=== PATIENT | male | born 1980 | race Caucasian/White ===

== ENCOUNTER → 2018-05-25 | Outpatient (CLI) | payer BC | LOC: OD 11:53 | PROVIDERS: ATTEND Otolaryngology | DX: J32.9 Chronic sinusitis, unspecified (principal) ==

== ENCOUNTER → 2018-06-21 | Outpatient (CLI) | payer BC | LOC: OD 13:14 | PROVIDERS: ATTEND Otolaryngology | DX: J32.9 Chronic sinusitis, unspecified (principal) | CPT/HCPCS: 36415; 82785; 86003 ==

== ENCOUNTER 2018-10-07 19:50 | Emergency (ER) | payer OTHER, BC ==
--- NOTE | 2018-10-07 23:37 | ER Document Report ---
HPI - HPI Time Seen by Provider: 10/07/18 22:56 Pain Level: 0 Context: Patient is a 38-year-old male that comes to the emergency department for chief complaint of possible medication side effects. He states that over the past few weeks ever since he was started on lisinopril he gets frequent flushing, tingling sensation over his face and shoulders, and occasionally feels mildly lightheaded. He denies pain in the chest, difficulty breathing, difficulty swallowing, swelling of the face, tongue, or throat. He denies any current symptoms. [facility] to adjust [facility]. He states that he does take a blood pressure journal and his blood pressure averages in the 140s to 150s when he does not take his medication. He does not take any other medications. He denies any other medical history. Past Medical History - General Information source: Patient - Social History Smoking Status: Never Smoker Frequency of alcohol use: None Drug Abuse: None Lives with: Alone Family History: Reviewed & Not Pertinent - Past Medical History Cardiac Medical History: Reports: Hx Hypertension - Immunizations Immunizations up to date: Yes Hx Diphtheria, Pertussis, Tetanus Vaccination: Yes Vertical Provider Document - CONSTITUTIONAL General Appearance: WD/WN, No Apparent Distress, Obese - INFECTION CONTROL TRAVEL OUTSIDE OF THE [place] IN LAST 30 DAYS: No - HEENT HEENT: Atraumatic, Normal ENT Exam, Normocephalic - NECK Neck: Normal Inspection - RESPIRATORY Respiratory: Breath Sounds Normal, No Respiratory Distress - CARDIOVASCULAR Cardiovascular: Regular Rate, Regular Rhythm - GI/ABDOMEN Gastrointestinal: Abdomen Soft, Abdomen Non-Tender - BACK Back: Normal Inspection - MUSCULOSKELETAL/EXTREMETIES Musculoskeletal/Extremeties: MAEW, FROM, Non-Tender - NEURO Level of Consciousness: Awake, Alert, Appropriate - DERM Integumentary: Warm, Dry, No Rash - There is some flushing of the skin around the face, shoulders, however there are no urticaria, no rash, unremarkable skin exam otherwise. Course - Re-evaluation Re-evalutation: Patient slightly anxious but otherwise well-appearing. He does have a slight flushing sensation on the head and shoulders but there is no hives, oral ph aryngeal exam is unremarkable, physical exam is unremarkable otherwise. Patient states he will not be taking his blood pressure medication any longer and he is requesting a new one. Because he has lready completed the blood pressure journal, he will be started on hydrochlorothiazide. I did provide him with Zyrtec as well because of his slightly odd symptoms. There is no evidence of anaphylaxis. I discussed expectations, close follow-up, and return precautions. Patient states understanding and agreement. - Vital Signs Vital signs: Temp Pulse Resp BP Pulse Ox 98.5 F 72 18 137/84 H 94 10/07/18 19:58 10/07/18 19:58 10/07/18 19:58 10/07/18 19:58 10/07/18 19:58 Discharge - Discharge Clinical Impression: Medication side effects, Essential hypertension Condition: Stable Disposition: HOME, SELF-CARE Additional Instructions: Because of the side effects you are having could be from the medication we are stopping the lisinopril and placing you on hydrochlorothiazide. Take as pres cribed. There is also possibility of allergy/allergic component to your symptoms, take the cetirizine as prescribed. Follow-up with your primary care for additional evaluation and management. Return to the emergency department for any concerning or worsening symptoms. Prescriptions: Cetirizine HCl [Zyrtec 10 mg Tablet] 1 tab PO DAILY #30 tablet Hydrochlorothiazide [Hydrodiuril 25 mg Tablet] 25 mg PO QAM #30 tablet Referrals: JACQUES GONZALEZ MD [ACTIVE STAFF] - Follow up as needed
[2018-10-08 00:13] VITALS: BP 181/87
== END 2018-10-07 23:48 | disposition home or self-care (01) ==
LOC: ER 19:50
DX: I10 Essential (primary) hypertension (principal); T46.4X5A Adverse effect of angiotensin-converting-enzyme inhibitors, initial encounter; R23.2 Flushing; R20.2 Paresthesia of skin; R42 Dizziness and giddiness; X58.XXXA Exposure to other specified factors, initial encounter
CPT/HCPCS: 99283

== ENCOUNTER 2019-04-21 18:15 | Emergency (ER) | payer BC ==
[2019-04-21 18:55] VITALS: BP 172/109
--- NOTE | 2019-04-21 19:03 | ER Document Report ---
ED Medical Screen (RME) - General TRAVEL OUTSIDE OF THE [place] IN LAST 30 DAYS: No <AL BONILLA - Last Filed: 04/21/19 19:02> <DAMIENFREDA GERALD - Last Filed: 04/21/19 22:34> - General Chief Complaint: Facial Swelling Stated Complaint: FACIAL PAIN, FEELS SWOLLEN Time Seen by Provider: 04/21/19 18:58 Primary Care Provider: RENETTA VARELA MD [Primary Care Provider] - Follow up as needed - HPI Notes: 04/21/19 19:02 Patient is a 39-year-old male who presents complaining of having intermittent flushing and redness to his face that feels like it is "burning" almost daily since February. He is not sure if this is drug allergy or something else going on. He is requesting some labs to be performed. Patient is aware that we may not find the exact answer and he might need to see a specialist for this issue. Denies fever, chest pain, shortness breath, abdominal pain. He does have a history of fatty liver and H. pylori otherwise. I have treated and performed a rapid initial assessment of this patient. A comprehensive ED assessment and evaluation of the patient, analysis of test results and completion of medical decision making process will be conducted by additional ED providers. PHYSICAL EXAMINATION: GENERAL: Well-appearing, well-nourished and in no acute distress. A&Ox4. Answers questions appropriately. No evidence of angioedema. No airway compromise. (AL BONILLA) - Related Data Allergies/Adverse Reactions: oxycodone [Oxycodone] Allergy (Verified 02/08/15 22:03) Penicillins Allergy (Verified 02/08/15 22:03) Past Medical History - Social History Frequency of alcohol use: None Drug Abuse: None - Past Medical History Cardiac Medical History: Reports: Hx Hypertension - Immunizations Immunizations up to date: Yes Hx Diphtheria, Pertussis, Tetanus Vaccination: Yes <AL BONILLA - Last Filed: 04/21/19 19:02> Physical Exam - Vital signs Vitals: Temp Pulse Resp BP Pulse Ox 97.9 F 87 18 172/109 H 98 04/21/19 18:53 04/21/19 18:53 04/21/19 18:53 04/21/19 18:53 04/21/19 18:53 Course - Laboratory Result Diagrams: 04/21/19 19:21 04/21/19 19:21 <FREDA QUEZADA IV - Last Filed: 04/21/19 22:34> - Vital Signs Vital signs: Temp Pulse Resp BP Pulse Ox 97.9 F 87 18 172/109 H 98 04/21/19 18:53 04/21/19 18:53 04/21/19 18:53 04/21/19 18:53 04/21/19 18:53 - Laboratory Laboratory results interpreted by me: 04/21/19 04/21/19 04/21/19 19:21 19:21 19:21 WBC 10.9 H Glucose 126 H Calcium 10.3 H AST 122 H Urine Urobilinogen 2.0 H Urine Ascorbic Acid 40 H Doctor's Discharge <AL BONILLA - Last Filed: 04/21/19 19:02> <FREDA QUEZADA IV - Last Filed: 04/21/19 22:34> - Discharge Clinical Impression: Facial paresthesia Condition: Good Disposition: HOME, SELF-CARE Additional Instructions: Return to the Emergency Department without delay if any worse. HOME CARE INSTRUCTIONS & INFORMATION: Thank you for choosing us for your medic al needs. We hope you're satisfied with the care you received. After you leave, you must properly care for your problem and, at the same time, observe its progress. Any condition can change. Some illnesses can change rapidly over hours or days. If your condition worsens, return to the Emergency Department or see your physician promptly. ABOUT YOUR X-RAYS AND EKG'S: If you had an EKG or X-rays taken, they have been read by the Emergency Physician. The X-rays and EKG's will also be read by a Radiologist or Manpower Development Specialist Manager within 24 hours. If discrepancies are noted, you will be notified by telephone. Please be certain the ED has a correct telephone number & address where you can be reached. Also, realize that some fractures or abnormalities do not show up on initial X-rays. If your symptoms continue, see your physician. ABOUT YOUR LABORATORY TEST: If you had laboratory tests, the results have been reviewed by the Emergency Physician. Some test results (for example cultures) may not be available for several days. You will be contacted if any test result shows you need additional treatment. Please be certain the ED has a correct telephone number and address where you can be reached. ABOUT YOUR MEDICATIONS: You will receive instructions on how to take your medicine on the prescription label you receive. Additional information may be provided by the Pharmacy. If you have questions afterwards, call the ED for clarification or further instructions. Some prescribed medications may cause drowsiness. Do not perform tasks such as driving a car or operating machinery without consulting your Pharmacist. If you feel you need a refill of pain medication, your condition will need re-evaluation. Please do not call for a refill of any medication. ABOUT YOUR SIGNATURE: Signature of this document acknowledges to followin. Understanding that you received emergency treatment and that you may be released before al medical problems are known or treated. Please be certain the ED has a correct phone number & address where you can be reached. 2. Acknowledgement that you will arrange for follow-up care as recommended. 3. Authorization for the Emergency Physician to provide information to your follow-up Physician in order to maximize your care. AT ANY TIME, IF YOUR SYMPTOMS CHANGE SIGNIFICANTLY OR WORSEN OR YOU DEVELOP NEW SYMPTOMS, RETURN TO THE EMERGENCY DEPARTMENT IMMEDIATELY FOR RE-EVALUATION. OUR GOAL IS TO PROVIDE EXCELLENT MEDICAL CARE! WE HOPE THAT WE HAVE MET YOUR EXPECTATIONS DURING YOUR EMERGENCY DEPARTMENT VISIT AND THAT YOU FEEL YOU HAVE RECEIVED EXCELLENT CARE! Referrals: RENETTA VARELA MD [Primary Care Provider] - Follow up as needed
[2019-04-21 19:43] LABS: ABSOLUTE BASOPHILS # (AUTO) 0.1 10^3/uL (0.0-0.2); ABSOLUTE EOSINOPHILS # (AUTO) 0.1 10^3/uL (0.0-0.6); ABSOLUTE MONOCYTES (AUTO) 0.8 10^3/uL (0.1-1.4); ABSOLUTE NEUT (AUTO) 6.9 10^3/uL (1.7-8.2); BASOPHILS % (AUTO) 0.5 % (0-2); EOSINOPHILS % (AUTO) 1.3 % (0-6); HEMATOCRIT 42.8 % (37.9-51.0); HEMOGLOBIN 15.2 g/dL (13.5-17.0); LYMPHOCYTES % (AUTO) 27.2 % (13-45); MEAN CORPUSCULAR HEMOGLOBIN 30.3 pg (27.0-33.4); MEAN CORPUSCULAR HGB CONC 35.6 g/dL (32.0-36.0); MEAN CORPUSCULAR VOLUME 85 fl (80-97); MONOCYTES % (AUTO) 7.5 % (3-13); PLATELET COUNT 424 10^3/uL (150-450); RED BLOOD COUNT 5.03 10^6/uL (4.35-5.55); RED CELL DISTRIBUTION WIDTH 12.5 % (11.5-14.0); SEGMENTED NEUTROPHILS % (AUTO) 63.5 % (42-78); TOTAL CELLS COUNTED % (AUTO) 100 %; WHITE BLOOD COUNT 10.9 10^3/uL (4.0-10.5)
[2019-04-21 19:52] LABS: APPEARANCE,URINE CLEAR; BILIRUBIN,URINE NEGATIVE (NEGATIVE); COLOR,URINE YELLOW; GLUCOSE, URINE NEGATIVE (NEGATIVE); KETONES,URINE NEGATIVE (NEGATIVE); PROTEIN,URINE NEGATIVE (NEGATIVE); URINE SPECIFIC GRAVITY 1.024
[2019-04-21 20:00] LABS: ALBUMIN 4.8 g/dL (3.5-5.0); ALKALINE PHOSPHATASE 78 U/L (38-126); ANION GAP 11 (5-19); ASPARTATE AMINO TRANSFERASE 122 U/L (17-59); BILIRUBIN,DIRECT 0.2 mg/dL (0.0-0.4); BILIRUBIN,TOTAL 0.7 mg/dL (0.2-1.3); BLOOD UREA NITROGEN 15 mg/dL (7-20); CALCIUM 10.3 mg/dL (8.4-10.2); CARBON DIOXIDE 30 mmol/L (22-30); CHLORIDE 100 mmol/L (98-107); GLUCOSE 126 mg/dL (75-110); POTASSIUM 4.5 mmol/L (3.6-5.0); TOTAL PROTEIN 7.9 g/dL (6.3-8.2)
--- NOTE | 2019-04-22 01:40 | ER Document Report ---
Entered by SHIRA SOTO SCRIBE 04/21/19 2233 Acting as scribe for:FREDA QUEZADA IV, MD ED General - General Chief Complaint: Facial Swelling Stated Complaint: FACIAL PAIN, FEELS SWOLLEN Time Seen by Provider: 04/21/19 18:58 Primary Care Provider: RENETTA VARELA MD [ACTIVE STAFF] - Follow up as needed Mode of Arrival: Ambulatory Information source: Patient Notes: This 39 year old male patient presents to the emergency department today with complaints of multiple vague complaints including face redness, feeling like his face was on fire, lip swelling, right sided facial swelling, chest pain, and spitting up blood. All of these symptoms are intermittent and have been going on for months. Patient adds that it "might just be that he is overstressed and overworked". TRAVEL OUTSIDE OF THE [place] IN LAST 30 DAYS: No - Related Data Allergies/Adverse Reactions: oxycodone [Oxycodone] Allergy (Verified 02/08/15 22:03) Penicillins Allergy (Verified 02/08/15 22:03) Past Medical History - General Information source: Patient - Social History Smoking Status: Former Smoker Cigarette use (# per day): No Frequency of alcohol use: None Drug Abuse: None Family History: Reviewed & Not Pertinent Patient has suicidal ideation: No Patient has homicidal ideation: No - Past Medical History Cardiac Medical History: Reports: Hx Hypertension - Immunizations Immunizations up to date: Yes Hx Diphtheria, Pertussis, Tetanus Vaccination: Yes Review of Systems - Review of Systems Constitutional: No symptoms reported EENT: See HPI Cardiovascular: See HPI Respiratory: No symptoms reported Gastrointestinal: No symptoms reported Genitourinary: No symptoms reported Male Genitourinary: No symptoms reported Musculoskeletal: No symptoms reported Skin: See HPI Hematologic/Lymphatic: No symptoms reported Neurological/Psychological: No symptoms reported -: Yes All other systems reviewed and negative Physical Exam - Vital signs Vitals: Temp Pulse Resp BP Pulse Ox 97.9 F 87 18 172/109 H 98 04/21/19 18:53 04/21/19 18:53 04/21/19 18:53 04/21/19 18:53 04/21/19 18:53 Interpretation: Normal - General General appearance: Appears well, Alert - HEENT Head: Normocephalic, Atraumatic Eyes: Normal Pupils: PERRL - Respiratory Respiratory status: No respiratory distress Chest status: Nontender Breath sounds: Normal Chest palpation: Normal - Cardiovascular Rhythm: Regular Heart sounds: Normal auscultation Murmur: No - Abdominal Inspection: Normal Distension: No distension Bowel sounds: Normal Tenderness: Nontender Organomegaly: No organomegaly - Back Back: Normal, Nontender - Extremities General upper extremity: Normal inspection, Nontender, Normal color, Normal ROM, Normal temperature General lower extremity: Normal inspection, Nontender, Normal color, Normal ROM, Normal temperature, Normal weight bearing. No: Kathryn's sign - Neurological Neuro grossly intact: Yes Cognition: Normal Orientation: AAOx4 Mary Coma Scale Eye Opening: Spontaneous Mary Coma Scale Verbal: Oriented [place] Coma Scale Motor: Obeys Commands [place] Coma Scale Total: 15 Speech: Normal Motor strength normal: LUE, RUE, LLE, RLE Sensory: Normal - Psychological Associated symptoms: Normal affect, Normal mood - Skin Skin Temperature: Warm Skin Moisture: Dry Skin Color: Normal Course - Vital Signs Vital signs: Temp Pulse Resp BP Pulse Ox 97.9 F 87 18 172/109 H 98 04/21/19 18:53 04/21/19 18:53 04/21/19 18:53 04/21/19 18:53 04/21/19 18:53 - Laboratory Result Diagrams: 04/21/19 19:21 04/21/19 19:21 Laboratory results interpreted by me: 04/21/19 04/21/19 04/21/19 19:21 19:21 19:21 WBC 10.9 H Glucose 126 H Calcium 10.3 H AST 122 H Urine Urobilinogen 2.0 H Urine Ascorbic Acid 40 H Discharge - Discharge Clinical Impression: Facial paresthesia Condition: Good Disposition: HOME, SELF-CARE Additional Instructions: Return to the Emergency Department without delay if any worse. HOME CARE INSTRUCTIONS & INFORMATION: Thank you for choosing us for your medical needs. We hope you're satisfied with the care you received. After you leave, you must properly care for your problem and, at the same time, observe its progress. Any condition can change. Some illnesses can change rapidly over hours or days. If your condition worsens, return to the Emergency Department or see your physician promptly. ABOUT YOUR X-RAYS AND EKG'S: If you had an EKG or X-rays taken, they have been read by the Emergency Physician. The X-rays and EKG's will also be read by a Ra diologist or Tax Assessor within 24 hours. If discrepancies are noted, you will be notified by telephone. Please be certain the ED has a correct telephone number & address where you can be reached. Also, realize that some fractures or abnormalities do not show up on initial X-rays. If your symptoms continue, see your physician. ABOUT YOUR LABORATORY TEST: If you had laboratory tests, the results have been reviewed by the Emergency Physician. Some test results (for example cultures) may not be available for several days. You will be contacted if any test result shows you need additional treatment. Please be certain the ED has a correct telephone number and address where you can be reached. ABOUT YOUR MEDICATIONS: You will receive instructions on how to take your medicine on the prescription label you receive. Additional information may be provided by the Pharmacy. If you have questions afterwards, call the ED for clarification or further instructions. Some prescribed medications may cause drowsiness. Do not perform tasks such as driving a car or operating machinery without consulting your Pharmacist. If you feel you need a refill of pain medication, your condition will need re-evaluation. Please do not call for a refill of any medication. ABOUT YOUR SIGNATURE: Signature of this document acknowledges to followin. Understanding that you received emergency treatment and that you may be released before al medical problems are known or treated. Please be certain the ED has a correct phone number & address where you can be reached. 2. Acknowledgement that you will arrange for follow-up care as recommended. 3. Authorization for the Emergency Physician to provide information to your follow-up Physician in order to maximize your care. AT ANY TIME, IF YOUR SYMPTOMS CHANGE SIGNIFICANTLY OR WORSEN OR YOU DEVELOP NEW SYMPTOMS, RETURN TO THE EMERGENCY DEPARTMENT IMMEDIATELY FOR RE-EVALUATION. OUR GOAL IS TO PROVIDE EXCELLENT MEDICAL CARE! WE HOPE THAT WE HAVE MET YOUR EXPECTATIONS DURING YOUR EMERGENCY DEPARTMENT VISIT AND THAT YOU FEEL YOU HAVE RECEIVED EXCELLENT CARE! Referrals: RENETTA VARELA MD [ACTIVE STAFF] - Follow up as needed I personally performed the services described in the documentation, reviewed and edited the documentation which was dictated to the scribe in my presence, and it accurately records my words and actions.
== END 2019-04-21 23:00 | disposition home or self-care (01) ==
LOC: ER 18:15
DX: R20.2 Paresthesia of skin (principal); R07.9 Chest pain, unspecified; R04.2 Hemoptysis; R22.0 Localized swelling, mass and lump, head; I10 Essential (primary) hypertension; Z88.6 Allergy status to analgesic agent; Z88.5 Allergy status to narcotic agent; Z88.0 Allergy status to penicillin; Z87.891 Personal history of nicotine dependence
CPT/HCPCS: 36415; 80053; 81001; 85025; 99283

== ENCOUNTER 2019-09-06 16:56 | Emergency (ER) | payer BC ==
[2019-09-06] MEDS ORDERED: LIDOCAINE 1% INJ (10 MG/ML) 10 ML MDV INJ ONE (17:30)
--- NOTE | 2019-09-06 18:27 | ER Document Report ---
ED Extremity Problem, Lower - General Chief Complaint: Toe Injury Stated Complaint: TOE PAIN Time Seen by Provider: 09/06/19 17:21 Primary Care Provider: NADIRA FRANCIS PA-C [Primary Care Provider] - Follow up as needed Mode of Arrival: Ambulatory Information source: Patient Notes: Patient is a 39-year-old male comes emergency room complaining of right great toe pain. Patient states that back before he had a problem with his great toe with an ingrown toenail so he went to the walk-in clinic and they did a block and removed portion of the nail. He states that it got better and then last night he was wrestling with his little toddler and somehow got part of the nail caught in something and pulled a little of the nail out. Patient states has had severe pain and discomfort ever since then with moderate amount of increasing redness. Also noted on patient's renal triage notes he had hypertension with a diastolic of 109 and a systolic of 199. Patient admits that he sees his primary care doctor and they have been having a difficult time managing his blood pressure and he was just changed over to hydralazine 10 mg twice a day and it seems like his pressure is getting worse. He has an appointment to follow-up with the primary care provider on Wednesday for reevaluation. Patient does not want us to follow blood pressure at this point secondary to his pain and discomfort. TRAVEL OUTSIDE OF THE [place] IN LAST 30 DAYS: No - HPI Patient complains to provider of: Pain, Swelling Location: Great Toe Occurred: Yesterday Where: Home Onset/Duration: Sudden, Worse Quality of pain: Throbbing Pain Level: 4 Context: Barefoot Recent injury: Yes Exacerbated by: Movement, Walking Relieved by: Nothing - Related Data Allergies/Adverse Reactions: oxycodone [Oxycodone] Allergy (Verified 02/08/15 22:03) Penicillins Allergy (Verified 02/08/15 22:03) Home Medications: hydralazine Past Medical History - General Information source: Patient - Social History Smoking Status: Never Smoker Chew tobacco use (# tins/day): No Frequency of alcohol use: None Drug Abuse: None Family History: Reviewed & Not Pertinent Patient has homicidal ideation: No - Past Medical History Cardiac Medical History: Reports: Hx Hypertension Past Surgical History: Reports: Hx Neurologic Surgery - brain thrombectomy - Immunizations Immunizations up to date: Yes Hx Diphtheria, Pertussis, Tetanus Vaccination: Yes Review of Systems - Review of Systems Constitutional: No symptoms reported EENT: No symptoms reported Cardiovascular: No symptoms reported Respiratory: No symptoms reported Gastrointestinal: No symptoms reported Genitourinary: No symptoms reported Male Genitourinary: No symptoms reported Musculoskeletal: No symptoms reported Skin: See HPI Hematologic/Lymphatic: No symptoms reported Neurological/Psychological: No symptoms reported -: Yes All other systems reviewed and negative Physical Exam - Vital signs Vitals: Temp Pulse Resp BP Pulse Ox 98.7 F 101 H 18 190/109 H 96 09/06/19 17:07 09/06/19 17:07 09/06/19 17:07 09/06/19 17:07 09/06/19 17:07 Interpretation: Hypertensive, Tachycardic - Notes Notes: Examination patient's area of concern is his right great toe on the medial nail. Visualization of the area shows some mild erythema noted along of the medial portion of the nail. There is swelling of the border of the nail as well. There is noted a area that is or appears to have been left from the last ingrown toenail or new growth of the ingrown toenail. At this appears in the right great toe at the base of the nail medial side. Moderate tenderness to touch along with some swelling noted in the area. Pressure applied also shows a little bit of discharge of a whitish pus. Course - Vital Signs Vital signs: Temp Pulse Resp BP Pulse Ox 98.0 F 98 20 164/114 H 99 09/06/19 18:35 09/06/19 18:35 09/06/19 18:35 09/06/19 18:35 09/06/19 18:35 Procedures - Nail Trephanation/Removal Right Great toe Betadine prep applied: Yes Notes: 09/07/19 01:06 Patient had an ingrown toenail on his right great toe medial aspect at the inferior portion of the nail. I used a Kristie drain to tourniquet the toe and then I used Betadine to clean at the base of the toe for the digital block as well as the area where the ingrown toenail portion was at. I then applied 2 mL's of 1% lidocaine without epi by going at the base of the great toe applied 1 mL to 1 side and then 1 mL to the other side. I waited approximately 4 minutes patient had fair amount of anesthesia I then injected into the ingrown toenail area approximately half an mL of 1% lidocaine without epi. This seemed to anesthetize the area really well. At that point I applied the [place] drain as a tourniquet I used my curved forceps to run down the edge of the nail bed and was able to extract a half a centimeter of nail from underneath the cuticle and the nail bed. I was then able to cut the ingrown nail with scissors and check the area again for any residual nail. At this time it appears that the area was cleaned of the ingrown nail there was no discharge of further pus. The tourniquet was removed and no bleeding was noted at this time. Patient tolerated this procedure without any difficulty or problems. Discharge - Discharge Clinical Impression: Ingrown toenail of right foot Hypertension Qualifiers: Hypertension type: unspecified Qualified Code(s): I10 - Essential (primary) hypertension Condition: Stable Disposition: HOME, SELF-CARE Instructions: High Blood Pressure ([facility]) Additional Instructions: Ingrown Nail You have an ingrown nail. An ingrown nail develops when the tissues near the nail are pushed up over the nail. Irritation develops and infection follows. An ingrown nail can result from poorly fitting shoes, improper cutting of the nail, or minor injuries. Once the tissues at the edge of the nail swell, the problem can become chronic. Emergency treatment is usually removal of the portion of the nail that has become ingrown. This is followed by hot soaks three to four times a day. Antibiotics may be necessary if infection is present. After the toe heals, make certain there is no pressure on the area, either from shoes or another toe. Trim the toenails straight across, not curved back into the corners. If ingrown nails recur, an operation to remove excess tissue near the nail, or narrowing of the nail, may be necessary. Call the doctor or return if swelling increases, or red streaks, swelling, or swollen glands are found. Prescriptions: Doxycycline Hyclate 100 mg PO BID 10 Days #20 tablet.dr Forms: Elevated Blood Pressure, Smoking Cessation Education, Return to Work Referrals: NADIRA FRANCIS PA-C [Primary Care Provider] - Follow up as needed
[2019-09-06 18:46] VITALS: BP 164/114
== END 2019-09-06 18:52 | disposition home or self-care (01) ==
LOC: ER 16:56
PROC: 0HBRXZZ Excision of Toe Nail, External Approach (ICD-10-PCS; principal; 2019-09-06)
DX: L60.0 Ingrowing nail (principal); I10 Essential (primary) hypertension; M79.674 Pain in right toe(s); M79.89 Other specified soft tissue disorders; W22.8XXA Striking against or struck by other objects, initial encounter; Y93.83 Activity, rough housing and horseplay; Z79.899 Other long term (current) drug therapy
CPT/HCPCS: 99283